=== PATIENT | female | born 1975 | race Two or more races ===

== ENCOUNTER 2021-04-26 10:15 | Inpatient (IN) | payer OTHER ==
[2021-04-26] VITALS (18 sets, daily range): BP systolic 137–181; BP diastolic 61–105
[~2021-04-26] VITALS: Ht 167.6 cm; Wt 69.0 kg
--- NOTE | 2021-04-26 10:10 | NUR ---
Pt arrived via [facility] from [facility] to [facility] for cardiac cath with Dr Pratt. Pt is A and O x 4, ambulatory to BR with steady gait. IV site to R hand and L AC. Pt has heparin gtt, nitroglycerin gtt and NS running. Consent for procedure obtained after explaining procedure and answering all questions. O2 2L/nc in place. Pt denies chest pain at this time. 1020 Heparin gtt turned off. 1035 pt taken to Regulator Inspector by Pat HOOK and Joaquina RN. FREDO POE
[2021-04-26] MEDS ORDERED: LIDOCAINE 1% PF 2 ML VIAL. ONE (10:26)
[2021-04-26] MEDS ORDERED: IODIXANOL 320 MG/ML 100 ML VIAL. ONE (10:26)
[2021-04-26] MEDS ORDERED: HEPARIN for ARTERIAL LINE 1,500 ML ONE (10:26)
[2021-04-26] MEDS ORDERED: LISI10TA16 PO (10:31)
[2021-04-26] MEDS ORDERED: ASPI-630 PO (10:31)
[2021-04-26] MEDS ORDERED: INSU100I30 SQ (10:31)
[2021-04-26] MEDS ORDERED: MIDAZOLAM HCL/PF 2 MG/2 ML VIAL. ONE (10:41)
[2021-04-26] MEDS ORDERED: fentaNYL PF VIAL 100 MCG/2 ML VIAL ONE (10:41)
[2021-04-26] MEDS ORDERED: HEPARIN for IV BOLUS 10,000 UNIT/10 ML VIAL. ONE (10:42)
[2021-04-26] MEDS ORDERED: NITROGLYCERIN 200 MCG/2 ML SYRINGE FOR CATH/VASC LAB. ONE ×2 (10:42→11:07)
[2021-04-26] MEDS ORDERED: VERAPAMIL 5 MG/2 ML VIAL. ONE (10:42)
[2021-04-26] MEDS ORDERED: LIDOCAINE 1% PF 2 ML VIAL. INJ ONE (11:00)
[2021-04-26] MEDS ORDERED: fentaNYL PF VIAL 100 MCG/2 ML VIAL IV ONE (11:00)
[2021-04-26] MEDS ORDERED: VERAPAMIL 5 MG/2 ML VIAL. IART ONE (11:00)
[2021-04-26] MEDS ORDERED: IODIXANOL 320 MG/ML 100 ML VIAL. IART ONE (11:00)
[2021-04-26] MEDS ORDERED: MIDAZOLAM HCL/PF 2 MG/2 ML VIAL. IV ONE (11:00)
[2021-04-26] MEDS ORDERED: NITROGLYCERIN 200 MCG/2 ML SYRINGE FOR CATH/VASC LAB. IART ONE (11:00)
[2021-04-26] MEDS ORDERED: HEPARIN for IV BOLUS 10,000 UNIT/10 ML VIAL. IART ONE (11:00)
[2021-04-26] MEDS ORDERED: CONTRAST GIVEN. MC PRN (11:15)
--- NOTE | 2021-04-26 11:49 | CARD ---
MR#: [id number] Date of Study: 04/26/2021 Ordering Physician: VALE GONZALEZ, Referring Physician: VALE GONZALEZ, Tech: RT Umu(R) APPROVED REPORT Technologist: RT Umu(R) Nurse: Joaquina Quiroz RN Procedure(s) performed: FLUORO TIME: 3.2 MIN DOSE: 55 Gycm2 Contrast: 69ccs Visipaque Mod Sed: 30 minutes LHC, Coronary angiography, Left ventriculogram [facility] Clinical Frailty Scale [facility] Clinical Frailty Scale: Moderately Frail Heart Failure Heart Failure: Yes If Yes, Newly Diagnosed: Yes If Yes, HF Type: Diastolic Systolic If Yes, NYHA Class: Class III CASE TECHNIQUE IV conscious sedation was used throughout procedure with appropriate monitoring and was performed in the presence of a registered nurse who was an independent trained observer other than the physician p erforming the procedure. During this case, Fluoroscopy and low osmolar contrast were used for imaging . Specimen(s) Removed: N/A Estimated Blood loss: 15 cc's. PROCEDURE NARRATIVE Clinical information: 45-year-old woman presented with accelerating angina and elevated troponin of 18. She was taken to [facility] catheterization laboratory for further evaluation Procedure details: After appropriate informed consent the right wrist was prepped and draped in usual sterile fashion. Under 1% lidocaine local anesthesia a 6 [place] sheath was placed in the right radial artery via the S eldinger technique. Next diagnostic angiography was performed with a 6 [place] TIG catheter and a 6 F rench pigtail catheter. At case completion catheters were removed and hemostasis was achieved with a Terumo radial band inflated to 10 mL. No acute complications are noted. Findings: Aorta 180/90 LVEDP 19 mmHg Left ventriculogram: EF 40%, distal one third of the LV is akinetic. No evidence of mitral or aortic insufficiency Coronary angiography: Left main is a moderate caliber vessel with mild luminal irregularities LAD is a calcified severely negatively remodeled vessel of small caliber with a long proximal to mid 70% stenosis D1 is a small caliber vessel with a proximal 70% stenosis Left circumflex is a moderate caliber nondominant vessel with a proximal 50% stenosis OM1 is a small to moderate caliber vessel with mild luminal irregularities RCA is a moderate to large caliber vessel with mild luminal irregularities of up to 30% RPDA is a small caliber vessel with a mid 70% stenosis Conclusion 1. Acute on chronic systolic and diastolic heart failure 2. Moderate LV systolic dysfunction, EF 40% 3. Severe one-vessel disease involving the LAD not amenable to PCI Recommendations Aggressive Medical Therapy Signed by : Vale Gonzalez, Electronically Approved : 04/26/2021 11:49:17
[2021-04-26] MEDS ORDERED: 0.9 % SODIUM CHLORIDE 10 ML DISP.SYRIN. IV PRN (13:15)
[2021-04-26] MEDS ORDERED: NITROGLYCERIN SUBLINGUAL 0.4 MG BOTTLE OF 25. SL PRN (13:15)
--- NOTE | 2021-04-26 13:26 | NUR ---
Report called to Hayden POE on [address] [place] [address], patient ate lunch, all of air is out of TR band and dressing will need to be applied. Vital signs stable, no problems noted. Addendum: 04/26/21 at 1331 by DAVID UGALDE RN Shipping Receiving Clerk mathematics technician decided it would be best to dress radial site. Dressing=Clean,dry,intact and no bleeding present. Patient transported to [address] [place] [address] with 2 RNs.
--- NOTE | 2021-04-26 13:37 | CONS ---
DATE OF CONSULTATION: 04/26/2021 REASON FOR CONSULTATION: Non-ST elevation ND. HISTORY OF PRESENT ILLNESS: A 45-year-old woman who presents to the hospital in the setting of an elevated troponin. She was seen in the office approximately 1 week ago and was planned for stress testing in light of the fact that she had chronic kidney disease prior to proceeding with cardiac catheterization. Prior to getting her stress test completed, she had worsening chest pain and ended up in the hospital. She was emergently taken to the cardiac catheterization laboratory due to a peak troponin of 18. PAST MEDICAL HISTORY: 1. Hypertension. 2. Dyslipidemia. 3. Type 2 diabetes. 4. Angina. SOCIAL HISTORY: The patient has a boyfriend. She also has a daughter. She denies any alcohol, tobacco or illicit drug use. ALLERGIES: HYDROCODONE. REVIEW OF SYSTEMS: Negative for 10 out of 14 systems reviewed, unless otherwise mentioned above in HPI. PHYSICAL EXAMINATION: VITAL SIGNS: Heart rate 100, blood pressure 180/90, respiratory rate 14, pulse ox 98% on room air, temperature afebrile. GENERAL: She is alert and oriented, in no acute distress. HEAD AND NECK: Unremarkable. CARDIAC: Regular rate and rhythm without murmurs, rubs or gallops. LUNGS: Clear to auscultation bilaterally. ABDOMEN: Soft, nontender, nondistended. EXTREMITIES: No clubbing, cyanosis or edema. NEUROLOGIC: No focal deficits. MUSCULOSKELETAL: No trauma. DIAGNOSTIC STUDIES: EKG demonstrates lateral ST segment depression and subtle inferolateral ST elevation. Troponin peak of 18. Cardiac catheterization demonstrated severe LAD disease, not amenable to PCI due to the severe negative remodeling. IMPRESSION: 1. Non-ST elevation myocardial infarction in the setting of severe left anterior descending coronary artery disease. 2. Hypertension. 3. Dyslipidemia. 4. Type 2 diabetes. RECOMMENDATIONS: 1. At this present time, continue aspirin and heparin drips. 2. I have discussed the case briefly with cardiac surgery and her vessels are not amenable for bypass targets. I reviewed the case with outside hospital supervisor steffen house as well who concur that her vessels are not amenable to PCI. 3. After official review of films by cardiac surgery (Dr Zhu) will start Plavix. 4. Continue aggressive medical therapy. Supportive care with statins. LEANNA/TOYIN DR: LEANNA/makenna TID: [id number] MTDD
[2021-04-26] MEDS: METOPROLOL TART IMMED RELEASE 25 MG TABLET. PO SCH ×2 (15:34→22:00)
--- NOTE | 2021-04-26 16:24 | CARD ---
MR#: [id number] Date of Study: 04/26/2021 Ordering Physician: VALE GONZALEZ, Referring Physician: VALE GONZALEZ, Tech: Luan Balderas [facility] APPROVED REPORT EXAM: Two-dimensional and M-mode echocardiogram with Doppler and color Doppler. Other Information Quality : AverageHR: 89bpm Rhythm : NSR INDICATION Cardiac Disease: CAD STEMI RISK FACTORS Hypertension Hyperlipidemia Family History Diabetes 2D DIMENSIONS Left Atrium(2D)3.5 (1.6-4.0cm)IVSd1.7 (0.7-1.1cm) Aortic Root(2D)2.9 (2.0-3.7cm)LVDd3.8 (3.9-5.9cm) LVOT Diameter1.9 (1.8-2.4cm)PWd1.7 (0.7-1.1cm) LVDs2.8 (2.5-4.0cm)FS (%) 26.5 % SV32.9 ml Aortic Valve AoV Peak Torres.128.7cm/sAoV VTI27.0cm AO Peak GR.6.6mmHgLVOT VTI 14.62cm AO Mean GR.4mmHgAI P 1/2 [id number] Mitral Valve MV E Asmqaewm98.0cm/sMV E Peak Gr.5mmHg MV DECEL [id number] A Wwzbmwxo39.3cm/s MV E Mean Gr.3mmHgE/A Ratio1.1 TDI Lateral E' P. V6.76cm/sMedial E' P. V5.34cm/s E/Lateral E'14.1E/Medial E'17.8 Tricuspid Valve TR P. Hwnbaqev000cy/sTR Peak Gr.39mmHg Pulmonary Vein S1 Vlggezkh22.5cm/sS2 Worxedfw82.89cm/s D2 Wszxqhrx76.9cm/s LEFT VENTRICLE The left ventricle is normal size. There is mild to moderate concentric left ventricular hypertrophy. The ejection fraction is mildly to moderately decreased with an ejection fraction of 40%. The dista l septum and apex are severely hypokinetic. Transmitral Doppler flow pattern is Grade II-pseudonormal filling dynamics. No left ventricle thrombus noted on this study. There is no ventricular septal def ect visualized. There is no left ventricular aneurysm. There is no mass noted in the left ventricle. RIGHT VENTRICLE The right ventricle is normal size. There is normal right ventricular wall thickness. The right ventr icular systolic function is normal. ATRIA The left atrium is moderately dilated. The right atrium size is normal. The interatrial septum is int act with no evidence for an atrial septal defect or patent foramen ovale as noted on 2-D or Doppler i maging. AORTIC VALVE The aortic valve is normal in structure and function. Doppler and Color Flow revealed trace to mild a ortic regurgitation. There is no significant aortic valvular stenosis. There is no aortic valvular ve getation. MITRAL VALVE Mitral annular calcification is mild. There is no evidence of mitral valve prolapse. There is no mitr al valve stenosis. Doppler and Color-flow revealed mild to moderate mitral regurgitation. TRICUSPID VALVE The tricuspid valve is normal in structure and function. Doppler and Color Flow revealed trace tricus pid regurgitation. PULMONIC VALVE The pulmonary valve is normal in structure and function. Doppler and Color Flow revealed no pulmonic valvular regurgitation. There is no pulmonic valvular stenosis. GREAT VESSELS The aortic root is normal in size. The ascending aorta is normal in size. The pulmonary artery is nor mal. The IVC is normal in size and collapses >50% with inspiration. PERICARDIAL EFFUSION Small pleural effusion noted. There is no evidence of significant pericardial effusion. Critical Notification Critical Value: No <Conclusion> The left ventricle is normal size. The ejection fraction is mildly to moderately decreased with an ejection fraction of 40%. The distal septum and apex are severely hypokinetic. There is mild to moderate concentric left ventricular hypertrophy. Doppler and Color Flow revealed trace to mild aortic regurgitation. There is no significant aortic valvular stenosis. Doppler and Color-flow revealed mild to moderate mitral regurgitation. Doppler and Color Flow revealed trace tricuspid regurgitation. Signed by : Chris Rodriguez MD Electronically Approved : 04/26/2021 16:23:58
[2021-04-26] MEDS ORDERED: HEPARIN for IV BOLUS 10,000 UNIT/10 ML VIAL. IV PRN (16:30)
[2021-04-26] MEDS ORDERED: HEPARIN 25,000UTS/250ML PREMIX 250 ML IV PRN (16:30)
[2021-04-26] MEDS ORDERED: NITROGLYCERIN PREMIX 250 ML IV PRN (16:45)
[2021-04-26] MEDS: LABETALOL 20 MG/4 ML DISP.SYRIN. IVP PRN (19:57)
[2021-04-26] MEDS: INSULIN GLARGINE SYRINGE. SQ SCH (21:00)
[2021-04-26] MEDS ORDERED: ATORVASTATIN CALCIUM 40 MG TABLET. PO SCH (21:00)
[2021-04-26] MEDS: ATORVASTATIN CALCIUM 40 MG TABLET. PO SCH (22:00)
[2021-04-26] MEDS: ACETAMINOPHEN 500 MG TABLET PO PRN (22:01)
[2021-04-27] VITALS (10 sets, daily range): BP systolic 108–187; BP diastolic 59–99
--- NOTE | 2021-04-27 06:13 | EKG ---
[facility] [address] [place] [address] Test Date: 2021-04-27 Test Time: 06:08:03 Pat Name: ZANDRA LARA Department: Room: [facility] Gender: F Detective Sergeant: JOSETTE : 1975 Requested By: VALE GONZALEZ Order Number: [id number] Reading MD: Measurements Intervals [place] Rate: 89 P: 28 MA: 146 QRS: 44 QRSD: 76 T: 139 QT: 412 QTc: 502 Interpretive Statements SINUS RHYTHM ST & T ABNORMALITY, CONSIDER HIGH LATERAL ISCHEMIA OR LEFT VENTRICULAR STRAIN T ABNORMALITY IN ANTERIOR LEADS ABNORMAL ECG RI6.02 No previous ECG available for comparison
[2021-04-27 06:32] LABS: CALCIUM 8.1 mg/dL (8.5-10.1); CREATININE 1.8 mg/dL (0.6-1.0); GFR 30.3; POTASSIUM 4.3 mmol/L (3.5-5.1)
[2021-04-27 06:36] LABS: HEMATOCRIT 26.8 % (36.0-47.0); RED BLOOD COUNT 3.13 x10^6/uL (3.50-5.40); RED CELL DISTRIBUTION WIDTH 17.1 % (11.5-14.5); WHITE BLOOD COUNT 9.2 x10^3/uL (4.0-11.0)
[2021-04-27] MEDS: CLOPIDOGREL BISULFATE 75 MG TABLET PO SCH (08:40)
[2021-04-27] MEDS: METOPROLOL TART IMMED RELEASE 25 MG TABLET. PO SCH ×2 (08:41→19:57)
[2021-04-27] MEDS: ASPIRIN ENTERIC COATED 81 MG TABLET.DR. PO SCH (08:41)
[2021-04-27] MEDS: LISINOPRIL 10 MG TABLET PO SCH (08:41)
[2021-04-27] MEDS: INSULIN GLARGINE SYRINGE. SQ SCH ×2 (08:44→19:56)
[2021-04-27] MEDS ORDERED: ASPIRIN CHEWABLE 81 MG TABLET. PO SCH (09:00)
[2021-04-27] MEDS ORDERED: ONDANSETRON PF 4 MG/2 ML VIAL. IVP PRN (10:15)
--- NOTE | 2021-04-27 11:57 | HP ---
ADMIT DATE: 04/26/2021 HISTORY OF PRESENT ILLNESS: The patient is a 45-year-old [place] female patient who presented to the Emergency Room of [facility] with chest pain that has been going on every night since October. She saw her primary care physician, ____, who referred her to Dr. Pratt and apparently as the pain has been consistent nightly central chest pain located in the middle chest, there is also some slight association with shortness of breath with some cough. She did have a diagnosis of COVID on 03/22, no vaccination for COVID. The patient does have a history of diabetes and elevated cholesterol. Denied any trauma. Denied any specific ill contact. The patient denied any immunosuppression. Denied any recent travel. The patient was extensively evaluated in the Emergency Room of [facility]. She has had an EKG done, which showed that she was in sinus tachycardia with ST changes consistent with subendocardial injury with suspected acute inferior myocardial infarction and her cardiac enzymes were also elevated and the patient was diagnosed with non-ST segment elevation myocardial infarction and was transferred to [facility] for cardiac catheterization. Her first troponin was 1.388, has risen to 10.174 and 18.804 prior to transfer to [facility]. She was also found to have mildly impaired kidney function. Her D-dimer was slightly high at 2.26. PAST MEDICAL HISTORY: Significant for hypertension, hyperlipidemia, type 2 diabetes mellitus. PAST SURGICAL HISTORY: Significant for tubal ligation and carpal tunnel release bilaterally. ALLERGIES: SHE IS ALLERGIC TO HYDROCODONE AND PERCOCET. MEDICATIONS: She is currently on the following medications: She is on lisinopril 10 mg once a day, aspirin 81 mg once a day and she is on Tresiba 24 units subcutaneously twice a day with meals. FAMILY HISTORY: She has 1 sister and 1 brother younger and healthy. Her father of myocardial infarction. Mother is still alive at age of 66 and apparently healthy. SOCIAL HISTORY: She is , has 1 daughter. She never smoked, does not drink alcohol or recreational drugs. She works at the [employer], packing medication for shipment. REVIEW OF SYSTEMS: As per history of present illness. PHYSICAL EXAMINATION: GENERAL: On arrival to the emergency room, the patient looked pale, but not jaundiced or cyanosed. No thyromegaly. No jugular venous distention. No limb edema. VITAL SIGNS: Her heart rate was 113, blood pressure was 164/88, temperature was 98.2, respiratory rate was 22, and oxygen saturation was 83% and it improved to 93% on 2 liters of oxygen. HEAD, EYES, EARS, NOSE, AND THROAT: Normocephalic, atraumatic. NECK: Supple. HEART: Normal first and second heart sounds. No gallop, rub or murmur. CHEST: Clear to auscultation. No crepitation or rhonchi. ABDOMEN: Distended, soft, nontender. NEUROLOGIC: She was grossly intact. LABORATORY DATA: Showed a white cell count 11,800, hemoglobin 10, hematocrit 32, MCV 85 and platelet count 510,000 with a manual differential showed 84% polymorphs, 11% lymphocytes and 4% monocytes. Her prothrombin time was 9.3, INR 0.9, APTT was 29 and D-dimer was 2.26. Her chemistry showed a serum sodium 139, potassium 4.9, chloride 106, bicarbonate 30, anion gap of 3, BUN 25, creatinine 1.4, estimated GFR was 40 mL per minute, her glucose 106, calcium was 8.2, magnesium was 1.8. Total bilirubin, AST, ALT, alkaline phosphatase were normal. CK was 239. Troponin was 1.388. Beta natriuretic peptide was 6,700. Total protein 5.6, albumin was 2.3. Second troponin was 10.174 and third was 18.804. Her serum triglycerides was 168, total cholesterol 253, LDL cholesterol 179, VLDL was 33, HDL was 41 and the ratio was 6. Her serum lipase 162 and TSH was 1.922. Urinalysis essentially unremarkable. Toxic screen was negative and her coronavirus by rapid testing was negative. Her chest x-ray showed hazy airspace opacities at the lower half of both lungs on a background of increased lung marking. No large effusion or pneumothorax, unchanged cardiomediastinal silhouette and ariel. ASSESSMENT AND PLAN: The patient was transferred to [facility] with a non-ST segment elevation myocardial infarction, acute hypoxic respiratory failure, hypertension, hyperlipidemia, congestive heart failure, anemia and impaired kidney function. We did consult the Cardiology team for further evaluation and treatment. RIRI/TRISTON[facility] [place] DR: Lucille TID: [id number]
[2021-04-27] MEDS ORDERED: LISINOPRIL 10 MG TABLET PO ONE (14:30)
--- NOTE | 2021-04-27 15:20 | PDOC ---
PROGRESS NOTES Date of Service DATE: 04/27/21 TIME: 15:18 Subjective Subjective Patient seen and examined Objective Objective Vital Signs Date Time Temp Pulse Resp B/P (MAP) Pulse Ox O2 Delivery O2 Flow Rate FiO2 04/27/21 14:41 85 172/82 04/27/21 11:00 98.8 18 96 Room Air 98.8 04/26/21 23:27 1.0 Intake and Output 04/27/21 07:00 Intake Total 1200 ml Balance 1200 ml Intake Oral 1200 ml # Voids 2 Physical Exam Abdomen: Normal bowel sounds Heart: Regular rate General: mild distress HEENT: Atraumatic Lungs: Clear to auscultation Assessment Assessment 1. Coronary artery disease with non-ST elevated myocardial infarction. Catheterization yesterday as noted above. The patient has a small diffusely diseased LAD that is not amenable to either percutaneous intervention or bypass surgery. Ejection fraction is mildly decreased at 40%. We will continue present medications and adjust as needed. 2. Hypertension. We will increase lisinopril. We will continue to monitor. 3. Elevated creatinine 1.8. Will monitor post catheterization. 4. Hyperlipidemia. Continue statin medication. Comment Review of Relevant I have reviewed the following items isidro (where applicable) has been applied. Labs Laboratory Tests Test 04/26/21 11:13 04/26/21 19:38 04/27/21 05:15 04/27/21 07:42 Activated Clotting Time 219 sec (92-181) Heparin Anti-Xa Act, Unfractionated 0.55 IU/mL (0.30-0.70) 0.27 IU/mL (0.30-0.70) White Blood Count 9.2 x10^3/uL (4.0-11.0) Red Blood Count 3.13 x10^6/uL (3.50-5.40) Hemoglobin 9.0 g/dL (12.0-15.5) Hematocrit 26.8 % (36.0-47.0) Mean Corpuscular Volume 86 fL (79-100) Mean Corpuscular Hemoglobin 29 pg (25-35) Mean Corpuscular Hemoglobin Concent 33 g/dL (31-37) Red Cell Distribution Width 17.1 % (11.5-14.5) Platelet Count 433 x10^3/uL (140-400) Sodium Level 139 mmol/L (136-145) Potassium Level 4.3 mmol/L (3.5-5.1) Chloride Level 106 mmol/L (98-107) Carbon Dioxide Level 27 mmol/L (21-32) Anion Gap 6 (6-14) Blood Urea Nitrogen 27 mg/dL (7-20) Creatinine 1.8 mg/dL (0.6-1.0) Estimated GFR (Cockcroft-Gault) 30.3 Glucose Level 103 mg/dL (70-99) Calcium Level 8.1 mg/dL (8.5-10.1) Glucose (Fingerstick) 106 mg/dL (70-99) Test 04/27/21 10:55 Glucose (Fingerstick) 91 mg/dL (70-99) Laboratory Tests Test 04/26/21 19:38 04/27/21 05:15 04/27/21 07:42 04/27/21 10:55 Heparin Anti-Xa Act, Unfractionated 0.55 IU/mL (0.30-0.70) 0.27 IU/mL (0.30-0.70) White Blood Count 9.2 x10^3/uL (4.0-11.0) Red Blood Count 3.13 x10^6/uL (3.50-5.40) Hemoglobin 9.0 g/dL (12.0-15.5) Hematocrit 26.8 % (36.0-47.0) Mean Corpuscular Volume 86 fL (79-100) Mean Corpuscular Hemoglobin 29 pg (25-35) Mean Corpuscular Hemoglobin Concent 33 g/dL (31-37) Red Cell Distribution Width 17.1 % (11.5-14.5) Platelet Count 433 x10^3/uL (140-400) Sodium Level 139 mmol/L (136-145) Potassium Level 4.3 mmol/L (3.5-5.1) Chloride Level 106 mmol/L (98-107) Carbon Dioxide Level 27 mmol/L (21-32) Anion Gap 6 (6-14) Blood Urea Nitrogen 27 mg/dL (7-20) Creatinine 1.8 mg/dL (0.6-1.0) Estimated GFR (Cockcroft-Gault) 30.3 Glucose Level 103 mg/dL (70-99) Calcium Level 8.1 mg/dL (8.5-10.1) Glucose (Fingerstick) 106 mg/dL (70-99) 91 mg/dL (70-99) Medications Current Medications Iodixanol (Visipaque 320) 100 ml STK-MED ONCE .ROUTE ; Start 04/26/21 at 10:26; Stop 04/26/21 at 10:26; Status DC Lidocaine HCl (Xylocaine-Mpf 1% 2ml Vial) 2 ml STK-MED ONCE .ROUTE ; Start 04/26/21 at 10:26; Stop 04/26/21 at 10:26; Status DC Heparin Sodium/ Sodium Chloride 1,500 ml @ As Directed STK-MED ONCE .ROUTE ; Start 04/26/21 at 10:26; Stop 04/26/21 at 10:26; Status DC Fentanyl Citrate (Fentanyl 2ml Vial) 100 mcg STK-MED ONCE .ROUTE ; Start 04/26/21 at 10:41; Stop 04/26/21 at 10:42; Status DC Midazolam HCl (Versed) 2 mg STK-MED ONCE .ROUTE ; Start 04/26/21 at 10:41; Stop 04/26/21 at 10:42; Status DC Heparin Sodium (Porcine) (Heparin Sodium) 10,000 unit STK-MED ONCE .ROUTE ; Start 04/26/21 at 10:42; Stop 04/26/21 at 10:42; Status DC Verapamil HCl (Verapamil) 5 mg STK-MED ONCE .ROUTE ; Start 04/26/21 at 10:42; Stop 04/26/21 at 10:42; Status DC Nitroglycerin (Nitroglycerin) 200 mcg STK-MED ONCE .ROUTE ; Start 04/26/21 at 10:42; Stop 04/26/21 at 10:42; Status DC Nitroglycerin (Nitroglycerin) 200 mcg 1X ONCE IART Last administered on 04/26/21at 10:58; Start 04/26/21 at 11:00; Stop 04/26/21 at 11:07; Status DC Verapamil HCl (Verapamil) 2.5 mg 1X ONCE IART Last administered on 04/26/21at 10:58; Start 04/26/21 at 11:00; Stop 04/26/21 at 11:07; Status DC Heparin Sodium (Porcine) (Heparin Sodium) 2,500 unit 1X ONCE IART Last administered on 04/26/21at 10:57; Start 04/26/21 at 11:00; Stop 04/26/21 at 11:07; Status DC Heparin Sodium/ Sodium Chloride (HEPARIN for ARTERIAL LINE FLUSH) 1,000 unit 1X ONCE IART Last administered on 04/26/21at 11:00; Start 04/26/21 at 11:00; Stop 04/26/21 at 11:07; Status DC Heparin Sodium/ Sodium Chloride (HEPARIN for ARTERIAL LINE FLUSH) 1,000 unit 1X ONCE IART Last administered on 04/26/21at 11:00; Start 04/26/21 at 11:00; Stop 04/26/21 at 11:07; Status DC Midazolam HCl (Versed) 2 mg 1X ONCE IV Last administered on 04/26/21at 10:57; Start 04/26/21 at 11:00; Stop 04/26/21 at 11:07; Status DC Fentanyl Citrate (Fentanyl 2ml Vial) 100 mcg 1X ONCE IV Last administered on 04/26/21at 10:57; Start 04/26/21 at 11:00; Stop 04/26/21 at 11:07; Status DC Iodixanol (Visipaque 320) 100 ml 1X ONCE IART Last administered on 04/26/21at 11:19; Start 04/26/21 at 11:00; Stop 04/26/21 at 11:07; Status DC Lidocaine HCl (Xylocaine-Mpf 1% 2ml Vial) 2 ml 1X ONCE INJ Last administered on 04/26/21at 10:57; Start 04/26/21 at 11:00; Stop 04/26/21 at 11:07; Status DC Info (CONTRAST GIVEN -- Rx MONITORING) 1 each PRN DAILY PRN MC SEE COMMENTS; Start 04/26/21 at 11:15; Stop 04/28/21 at 11:14 Nitroglycerin (Nitroglycerin) 200 mcg STK-MED ONCE .ROUTE ; Start 04/26/21 at 11:07; Stop 04/26/21 at 11:07; Status DC Sodium Chloride (Normal Saline Flush) 3 ml QSHIFT PRN IV AFTER MEDS AND BLOOD DRAWS; Start 04/26/21 at 13:15 Aspirin (Ecotrin) 81 mg DAILYWBKFT PO Last administered on 04/27/21at 08:41; Start 04/27/21 at 08:00 Clopidogrel Bisulfate (Plavix) 75 mg DAILYWBKFT PO Last administered on 04/27/21at 08:40; Start 04/27/21 at 08:00 Metoprolol Tartrate (Lopressor) 25 mg BID PO Last administered on 04/27/21at 08:41; Start 04/26/21 at 14:00 Atorvastatin Calcium (Lipitor) 40 mg QHS PO Last administered on 04/26/21at 22:00; Start 04/26/21 at 21:00 Nitroglycerin (Nitrostat) 0.4 mg PRN Q5MIN PRN SL CHEST PAIN; Start 04/26/21 at 13:15 Heparin Sodium/ Dextrose 250 ml @ 0 mls/hr CONT PRN IV PER PROTOCOL; Start 04/26/21 at 16:30 Heparin Sodium (Porcine) (Heparin Sodium) 1,650 unit PRN Q6HRS PRN IV FOR UFH LEVEL LESS THAN 0.2; Start 04/26/21 at 16:30 Labetalol HCl (Normodyne Iv Push) 20 mg Q6HRS PRN IVP HYPERTENSION Last administered on 04/26/21at 19:57; Start 04/26/21 at 16:30 Nitroglycerin/ Dextrose 250 ml @ 1.5 mls/hr CONT PRN IV SEE I/O RECORD Last administered on 04/27/21at 08:40; Start 04/26/21 at 16:45; Stop 04/27/21 at 14:29; Status DC Atorvastatin Calcium (Lipitor) 40 mg QHS PO ; Start 04/26/21 at 21:00; Status UNV Aspirin (Aspirin Chewable) 81 mg DAILY PO ; Start 04/27/21 at 09:00; Status UNV Lisinopril (Prinivil) 10 mg DAILY PO Last administered on 04/27/21at 08:41; Start 04/27/21 at 09:00 Insulin Glargine (Lantus Syringe) 24 unit BID SQ ; Start 04/26/21 at 21:00 Acetaminophen (Tylenol) 1,000 mg PRN Q6HRS PRN PO FEVER/mild pain Last administered on 04/26/21at 22:01; Start 04/26/21 at 21:45 Ondansetron HCl (Zofran) 4 mg PRN Q6HRS PRN IVP NAUSEA/VOMITING Last administered on 04/27/21at 10:30; Start 04/27/21 at 10:15 Lisinopril (Prinivil) 20 mg 1X ONCE PO Last administered on 04/27/21at 14:41; Start 04/27/21 at 14:30; Stop 04/27/21 at 14:31; Status DC Active Scripts Active Reported Aspirin 81 Mg Tab.chew 81 Mg PO DAILY Lisinopril 10 Mg Tablet 10 Mg PO DAILY Tresiba Flextouch U-100 (Insulin Degludec) 100 Unit/1 Ml Insuln.pen 24 Unit SQ BIDWMEALS Vitals/I & O Vital Sign - Last 24 Hours 04/26/21 04/26/21 04/26/21 04/26/21 15:34 15:45 16:00 16:15 Pulse 97 92 92 96 B/P (MAP) 169/82 (111) Pulse Ox 89 98 97 O2 Delivery Room Air Room Air Room Air 04/26/21 04/26/21 04/26/21 04/26/21 16:30 17:00 19:30 19:57 Temp 98.3 98.3 Pulse 100 92 86 92 Resp 18 B/P (MAP) 176/86 (116) 181/85 (117) 170/81 (110) 181/85 Pulse Ox 95 96 95 O2 Delivery Room Air Room Air Nasal Cannula O2 Flow Rate 1.0 04/26/21 04/26/21 04/26/21 04/26/21 20:00 22:00 22:00 23:00 Pulse 92 82 82 B/P (MAP) 181/85 165/83 (110) 158/75 (102) O2 Delivery Room Air 04/26/21 04/27/21 04/27/21 04/27/21 23:27 00:18 01:00 01:44 Temp 98.2 98.2 Pulse 77 72 75 Resp 21 B/P (MAP) 119/60 (79) 108/59 (75) 108/61 (77) Pulse Ox 97 O2 Delivery Nasal Cannula O2 Flow Rate 1.0 04/27/21 04/27/21 04/27/21 04/27/21 03:00 04:00 04:23 07:18 Temp 98.0 98.7 98.0 98.7 Pulse 78 91 Resp 20 B/P (MAP) 123/65 (84) 135/62 (86) 143/99 (114) Pulse Ox 94 99 O2 Delivery Room Air Room Air 04/27/21 04/27/21 04/27/21 04/27/21 07:45 08:41 08:41 11:00 Temp 98.8 98.8 Pulse 91 91 85 Resp 18 B/P (MAP) 143/99 143/99 172/82 (112) Pulse Ox 96 O2 Delivery Room Air Room Air 04/27/21 14:41 Pulse 85 B/P (MAP) 172/82 Intake and Output 04/26/21 04/26/21 04/27/21 15:00 23:00 07:00 Intake Total 1200 ml Balance 1200 ml Justifications for Admission Other Justification HARPER OROURKE MD Apr 27, 2021 15:20
--- NOTE | 2021-04-27 19:31 | PN ---
DATE: 04/27/2021 SUBJECTIVE: The patient was transferred from [facility] with chest pain and was diagnosed with non-ST segment elevation myocardial infarction and underwent cardiac catheterization, which showed that the patient has acute on chronic systolic and diastolic congestive heart failure, moderate left ventricular systolic function, ejection fraction of 40%, severe 1 vessel disease involving the LAD, not amenable to PCI and proof plate maker recommended aggressive medical treatment. The patient was started on heparin drip and nitroglycerin drip. She has had an echocardiogram done, which basically showed that her left ventricular size is normal. Left ventricular ejection fraction is mildly to moderately decreased with an ejection fraction of 40%. The distal septal and apex are severely hypokinetic. There is [id number] concentric left ventricular hypertrophy. The Doppler and color flow revealed trace to mild aortic regurgitation, no significant aortic valvular stenosis, [id number] mitral regurgitation and trace tricuspid regurgitation. When I saw her this morning, the patient was resting slightly propped up in bed, in no apparent respiratory distress. She is awake, alert, complaining of nausea, but denied any chest pain or shortness of breath. PHYSICAL EXAMINATION: GENERAL: When I examined her, she was pale with no jaundice, cyanosis, no lymphadenopathy, no thyromegaly, no jugular venous distention. No lower limb edema. VITAL SIGNS: Her heart rate was 91, blood pressure is 143/99, temperature was 98.7, respiratory rate was 20 and oxygen saturation was 99%. HEAD, EYES, EARS, NOSE, AND THROAT: Normocephalic, atraumatic. NECK: Supple. HEART: Normal first and second heart sounds, no gallop or murmur. CHEST: Clear to auscultation. No crepitation or rhonchi. ABDOMEN: Distended, soft, nontender. NEUROLOGIC: She was grossly intact. Her intake over the last 24 hours was 1200, no output was recorded. LABORATORY DATA: Her lab work this morning showed a serum sodium 139, potassium 4.3, chloride 106, bicarbonate 27, anion gap of 6, BUN 27, creatinine 1.8. Estimated GFR was 30 mL per minute. Her glucose 103, calcium was 8.1. Her white cell count was 9200, hemoglobin 9, hematocrit 27, MCV 86 and platelet count of 133,000. ASSESSMENT: In summary, this is a 45-year-old [place] female patient who was admitted with a non-ST segment elevation myocardial infarction. She has multiple risk factors for coronary artery disease including hypertension, hyperlipidemia and also type 2 diabetes mellitus. Her angiogram showed the patient has severe 1 vessel disease involving the left anterior descending, not amenable to PCI. She has acute on chronic diastolic and systolic congestive heart failure, moderate left ventricular systolic dysfunction, ejection fraction of 40%. She has hypertension, hyperlipidemia, and type 2 diabetes mellitus. PLAN: To continue with all her current medications that include obviously, lisinopril, Plavix and aspirin. She is on Lantus insulin 24 units twice a day, atorvastatin 40 mg at bedtime. She is on nitroglycerin drip as well as heparin drip, metoprolol 25 mg twice a day. According to ____, she will continue this until tomorrow, Thursday and she will be able to be discharged home. RIRI/CAL/EVITA DR: Lucille TID: [id number]
[2021-04-27] MEDS: ATORVASTATIN CALCIUM 40 MG TABLET. PO SCH (19:57)
[2021-04-28 03:30] VITALS: BP 158/67
[2021-04-28 07:45] VITALS: BP 165/78
[2021-04-28 08:13] LABS: BASO # 0.1 x10^3/uL (0.0-0.2); BASO % 1 % (0-3); EOS # 0.4 x10^3/uL (0.0-0.7); EOS % 6 % (0-3); HEMOGLOBIN 9.3 g/dL (12.0-15.5); LYMPH # 1.6 x10^3/uL (1.0-4.8); LYMPH % 23 % (24-48); MEAN CORPUSCULAR HEMOGLOBIN 28 pg (25-35); MEAN CORPUSCULAR HGB CONC 33 g/dL (31-37); MEAN CORPUSCULAR VOLUME 85 fL (79-100); MONO # 0.4 x10^3/uL (0.0-1.1); MONO % 7 % (0-9); NEUT # 4.3 x10^3/uL (1.8-7.7); NEUT % 63 % (31-73); PLATELET COUNT 453 x10^3/uL (140-400); RED BLOOD COUNT 3.29 x10^6/uL (3.50-5.40); RED CELL DISTRIBUTION WIDTH 16.8 % (11.5-14.5); WHITE BLOOD COUNT 6.8 x10^3/uL (4.0-11.0)
[2021-04-28 08:18] LABS: CALCIUM 8.5 mg/dL (8.5-10.1); CREATININE 1.8 mg/dL (0.6-1.0); GFR 30.3; POTASSIUM 4.7 mmol/L (3.5-5.1)
[2021-04-28] MEDS: INSULIN GLARGINE SYRINGE. SQ SCH ×2 (09:00→20:07)
--- NOTE | 2021-04-28 09:31 | PN ---
DATE: 04/28/2021 SUBJECTIVE: The patient is sitting in her chair, in no apparent respiratory distress. On questioning her, she denied any chest pain, denied any shortness of breath and stated that she has an uneventful night. PHYSICAL EXAMINATION: GENERAL: When I examined her, she looked well and was clearly in no apparent respiratory distress. She was somewhat pale. No jaundice, cyanosis or thyromegaly. No jugular venous distention. No lower limb edema. VITAL SIGNS: Her heart rate was 70, blood pressure was 165/78, temperature was 98, respiratory rate 20, and oxygen saturation was 94% on room air. HEAD, EYES, EARS, NOSE, AND THROAT: Showed normocephalic, atraumatic. NECK: Supple. HEART: Normal first and second heart sounds. No gallop, rub or murmur. CHEST: Clear to auscultation. No crepitation or rhonchi. ABDOMEN: Distended, soft, nontender. NEUROLOGIC: She was grossly intact. Her intake was 1200, no output was recorded. LABORATORY WORK: This morning showed a serum sodium of 140, potassium 4.7, chloride 107, bicarbonate 27, anion gap of 6, BUN 28, creatinine 1.8. Estimated GFR was 30 mL per minute. Her glucose was low at 44 and calcium was 8.5. Her white cell count was 9200, hemoglobin 9, hematocrit 27, MCV 86 and platelet count of 433,000. ASSESSMENT: 1. This is a 45-year-old [place] female patient who was admitted with non-ST segment elevation myocardial infarction. She has multiple risk factors for coronary artery disease including hypertension, hyperlipidemia, type 2 diabetes mellitus. Her angiogram showed she has severe 1 vessel disease involving the left anterior descending, not amenable to percutaneous coronary intervention or bypass surgery. 2. Acute on chronic diastolic congestive heart failure. 3. Moderate left ventricular systolic dysfunction with ejection fraction of 40%. 4. Hypertension. 5. Hyperlipidemia. 6. Type 2 diabetes mellitus. 7. Acute kidney injury, likely due to contrast-induced nephropathy. Her creatinine has risen from 1.4 and 1.8 and stabilized there. PLAN: To continue with all her current medication. Await Cardiology's evaluation to see whether she is a candidate to be discharged home and followed as an outpatient. SHARIFA DR: Lucille TID: [id number]
[2021-04-28] MEDS: METOPROLOL TART IMMED RELEASE 25 MG TABLET. PO SCH (10:10)
[2021-04-28] MEDS: LISINOPRIL 10 MG TABLET PO SCH (10:11)
[2021-04-28] MEDS: CLOPIDOGREL BISULFATE 75 MG TABLET PO SCH (10:11)
[2021-04-28] MEDS: ASPIRIN ENTERIC COATED 81 MG TABLET.DR. PO SCH (10:14)
[2021-04-28 11:00] VITALS: BP 197/90
[2021-04-28] MEDS: LABETALOL 20 MG/4 ML DISP.SYRIN. IVP PRN ×2 (11:11→23:27)
--- NOTE | 2021-04-28 13:34 | PDOC ---
PROGRESS NOTES Date of Service DATE: 04/28/21 TIME: 13:31 Subjective Subjective Patient seen and examined Objective Objective Vital Signs Date Time Temp Pulse Resp B/P (MAP) Pulse Ox O2 Delivery O2 Flow Rate FiO2 04/28/21 11:11 81 197/90 04/28/21 11:00 98.1 18 93 Room Air 98.1 04/27/21 23:15 1.0 Intake and Output 04/28/21 07:00 Intake Total 1080 ml Output Total 0 ml Balance 1080 ml Intake Oral 1080 ml Output Urine Total 0 ml # Voids 2 Physical Exam Abdomen: Normal bowel sounds Heart: Regular rate General: No acute distress Lungs: Other (Mildly decreased breath sounds) Assessment Assessment 1. Coronary artery disease with non-ST elevated myocardial infarction. Catheterization as noted above. The patient has a small diffusely diseased LAD that is not amenable to either percutaneous intervention or bypass surgery. Ejection fraction is mildly decreased at 40%. The patient looks and feels better today. She denies chest pain. She continues to have dyspnea on exertion. 2. Hypertension. Continue elevated. Will adjust medications and monitor. 3. Elevated creatinine 1.8. We will recheck morning lab. 4. Hyperlipidemia. Continue statin medication. We will adjust medications for the patient's hypertension. Would increase activities today. Discharge tomorrow. This was discussed with the patient and her family. Comment Review of Relevant I have reviewed the following items isidro (where applicable) has been applied. Labs Laboratory Tests Test 04/26/21 19:38 04/27/21 05:15 04/27/21 07:42 04/27/21 10:55 Heparin Anti-Xa Act, Unfractionated 0.55 IU/mL (0.30-0.70) 0.27 IU/mL (0.30-0.70) White Blood Count 9.2 x10^3/uL (4.0-11.0) Red Blood Count 3.13 x10^6/uL (3.50-5.40) Hemoglobin 9.0 g/dL (12.0-15.5) Hematocrit 26.8 % (36.0-47.0) Mean Corpuscular Volume 86 fL (79-100) Mean Corpuscular Hemoglobin 29 pg (25-35) Mean Corpuscular Hemoglobin Concent 33 g/dL (31-37) Red Cell Distribution Width 17.1 % (11.5-14.5) Platelet Count 433 x10^3/uL (140-400) Sodium Level 139 mmol/L (136-145) Potassium Level 4.3 mmol/L (3.5-5.1) Chloride Level 106 mmol/L (98-107) Carbon Dioxide Level 27 mmol/L (21-32) Anion Gap 6 (6-14) Blood Urea Nitrogen 27 mg/dL (7-20) Creatinine 1.8 mg/dL (0.6-1.0) Estimated GFR (Cockcroft-Gault) 30.3 Glucose Level 103 mg/dL (70-99) Calcium Level 8.1 mg/dL (8.5-10.1) Glucose (Fingerstick) 106 mg/dL (70-99) 91 mg/dL (70-99) Test 04/27/21 16:34 04/27/21 19:56 04/28/21 07:00 04/28/21 07:35 Glucose (Fingerstick) 105 mg/dL (70-99) 97 mg/dL (70-99) 49 mg/dL (70-99) White Blood Count 6.8 x10^3/uL (4.0-11.0) Red Blood Count 3.29 x10^6/uL (3.50-5.40) Hemoglobin 9.3 g/dL (12.0-15.5) Hematocrit 28.0 % (36.0-47.0) Mean Corpuscular Volume 85 fL (79-100) Mean Corpuscular Hemoglobin 28 pg (25-35) Mean Corpuscular Hemoglobin Concent 33 g/dL (31-37) Red Cell Distribution Width 16.8 % (11.5-14.5) Platelet Count 453 x10^3/uL (140-400) Neutrophils (%) (Auto) 63 % (31-73) Lymphocytes (%) (Auto) 23 % (24-48) Monocytes (%) (Auto) 7 % (0-9) Eosinophils (%) (Auto) 6 % (0-3) Basophils (%) (Auto) 1 % (0-3) Neutrophils # (Auto) 4.3 x10^3/uL (1.8-7.7) Lymphocytes # (Auto) 1.6 x10^3/uL (1.0-4.8) Monocytes # (Auto) 0.4 x10^3/uL (0.0-1.1) Eosinophils # (Auto) 0.4 x10^3/uL (0.0-0.7) Basophils # (Auto) 0.1 x10^3/uL (0.0-0.2) Sodium Level 140 mmol/L (136-145) Potassium Level 4.7 mmol/L (3.5-5.1) Chloride Level 107 mmol/L (98-107) Carbon Dioxide Level 27 mmol/L (21-32) Anion Gap 6 (6-14) Blood Urea Nitrogen 28 mg/dL (7-20) Creatinine 1.8 mg/dL (0.6-1.0) Estimated GFR (Cockcroft-Gault) 30.3 Glucose Level 44 mg/dL (70-99) Calcium Level 8.5 mg/dL (8.5-10.1) Test 04/28/21 08:04 04/28/21 12:08 Glucose (Fingerstick) 98 mg/dL (70-99) 78 mg/dL (70-99) Laboratory Tests Test 04/27/21 16:34 04/27/21 19:56 04/28/21 07:00 04/28/21 07:35 Glucose (Fingerstick) 105 mg/dL (70-99) 97 mg/dL (70-99) 49 mg/dL (70-99) White Blood Count 6.8 x10^3/uL (4.0-11.0) Red Blood Count 3.29 x10^6/uL (3.50-5.40) Hemoglobin 9.3 g/dL (12.0-15.5) Hematocrit 28.0 % (36.0-47.0) Mean Corpuscular Volume 85 fL (79-100) Mean Corpuscular Hemoglobin 28 pg (25-35) Mean Corpuscular Hemoglobin Concent 33 g/dL (31-37) Red Cell Distribution Width 16.8 % (11.5-14.5) Platelet Count 453 x10^3/uL (140-400) Neutrophils (%) (Auto) 63 % (31-73) Lymphocytes (%) (Auto) 23 % (24-48) Monocytes (%) (Auto) 7 % (0-9) Eosinophils (%) (Auto) 6 % (0-3) Basophils (%) (Auto) 1 % (0-3) Neutrophils # (Auto) 4.3 x10^3/uL (1.8-7.7) Lymphocytes # (Auto) 1.6 x10^3/uL (1.0-4.8) Monocytes # (Auto) 0.4 x10^3/uL (0.0-1.1) Eosinophils # (Auto) 0.4 x10^3/uL (0.0-0.7) Basophils # (Auto) 0.1 x10^3/uL (0.0-0.2) Sodium Level 140 mmol/L (136-145) Potassium Level 4.7 mmol/L (3.5-5.1) Chloride Level 107 mmol/L (98-107) Carbon Dioxide Level 27 mmol/L (21-32) Anion Gap 6 (6-14) Blood Urea Nitrogen 28 mg/dL (7-20) Creatinine 1.8 mg/dL (0.6-1.0) Estimated GFR (Cockcroft-Gault) 30.3 Glucose Level 44 mg/dL (70-99) Calcium Level 8.5 mg/dL (8.5-10.1) Test 04/28/21 08:04 04/28/21 12:08 Glucose (Fingerstick) 98 mg/dL (70-99) 78 mg/dL (70-99) Medications Current Medications Iodixanol (Visipaque 320) 100 ml STK-MED ONCE .ROUTE ; Start 04/26/21 at 10:26; Stop 04/26/21 at 10:26; Status DC Lidocaine HCl (Xylocaine-Mpf 1% 2ml Vial) 2 ml STK-MED ONCE .ROUTE ; Start 04/26/21 at 10:26; Stop 04/26/21 at 10:26; Status DC Heparin Sodium/ Sodium Chloride 1,500 ml @ As Directed STK-MED ONCE .ROUTE ; Start 04/26/21 at 10:26; Stop 04/26/21 at 10:26; Status DC Fentanyl Citrate (Fentanyl 2ml Vial) 100 mcg STK-MED ONCE .ROUTE ; Start 04/26/21 at 10:41; Stop 04/26/21 at 10:42; Status DC Midazolam HCl (Versed) 2 mg STK-MED ONCE .ROUTE ; Start 04/26/21 at 10:41; Stop 04/26/21 at 10:42; Status DC Heparin Sodium (Porcine) (Heparin Sodium) 10,000 unit STK-MED ONCE .ROUTE ; Start 04/26/21 at 10:42; Stop 04/26/21 at 10:42; Status DC Verapamil HCl (Verapamil) 5 mg STK-MED ONCE .ROUTE ; Start 04/26/21 at 10:42; Stop 04/26/21 at 10:42; Status DC Nitroglycerin (Nitroglycerin) 200 mcg STK-MED ONCE .ROUTE ; Start 04/26/21 at 10:42; Stop 04/26/21 at 10:42; Status DC Nitroglycerin (Nitroglycerin) 200 mcg 1X ONCE IART Last administered on 04/26/21at 10:58; Start 04/26/21 at 11:00; Stop 04/26/21 at 11:07; Status DC Verapamil HCl (Verapamil) 2.5 mg 1X ONCE IART Last administered on 04/26/21at 10:58; Start 04/26/21 at 11:00; Stop 04/26/21 at 11:07; Status DC Heparin Sodium (Porcine) (Heparin Sodium) 2,500 unit 1X ONCE IART Last administered on 04/26/21at 10:57; Start 04/26/21 at 11:00; Stop 04/26/21 at 11:07; Status DC Heparin Sodium/ Sodium Chloride (HEPARIN for ARTERIAL LINE FLUSH) 1,000 unit 1X ONCE IART Last administered on 04/26/21at 11:00; Start 04/26/21 at 11:00; Stop 04/26/21 at 11:07; Status DC Heparin Sodium/ Sodium Chloride (HEPARIN for ARTERIAL LINE FLUSH) 1,000 unit 1X ONCE IART Last administered on 04/26/21at 11:00; Start 04/26/21 at 11:00; Stop 04/26/21 at 11:07; Status DC Midazolam HCl (Versed) 2 mg 1X ONCE IV Last administered on 04/26/21at 10:57; Start 04/26/21 at 11:00; Stop 04/26/21 at 11:07; Status DC Fentanyl Citrate (Fentanyl 2ml Vial) 100 mcg 1X ONCE IV Last administered on 04/26/21at 10:57; Start 04/26/21 at 11:00; Stop 04/26/21 at 11:07; Status DC Iodixanol (Visipaque 320) 100 ml 1X ONCE IART Last administered on 04/26/21at 11:19; Start 04/26/21 at 11:00; Stop 04/26/21 at 11:07; Status DC Lidocaine HCl (Xylocaine-Mpf 1% 2ml Vial) 2 ml 1X ONCE INJ Last administered on 04/26/21at 10:57; Start 04/26/21 at 11:00; Stop 04/26/21 at 11:07; Status DC Info (CONTRAST GIVEN -- Rx MONITORING) 1 each PRN DAILY PRN MC SEE COMMENTS; Start 04/26/21 at 11:15; Stop 04/28/21 at 11:14; Status DC Nitroglycerin (Nitroglycerin) 200 mcg STK-MED ONCE .ROUTE ; Start 04/26/21 at 11:07; Stop 04/26/21 at 11:07; Status DC Sodium Chloride (Normal Saline Flush) 3 ml QSHIFT PRN IV AFTER MEDS AND BLOOD DRAWS; Start 04/26/21 at 13:15 Aspirin (Ecotrin) 81 mg DAILYWBKFT PO Last administered on 04/28/21at 10:14; Start 04/27/21 at 08:00 Clopidogrel Bisulfate (Plavix) 75 mg DAILYWBKFT PO Last administered on 04/28/21at 10:11; Start 04/27/21 at 08:00 Metoprolol Tartrate (Lopressor) 25 mg BID PO Last administered on 04/28/21at 10:10; Start 04/26/21 at 14:00 Atorvastatin Calcium (Lipitor) 40 mg QHS PO Last administered on 04/27/21at 19:57; Start 04/26/21 at 21:00 Nitroglycerin (Nitrostat) 0.4 mg PRN Q5MIN PRN SL CHEST PAIN; Start 04/26/21 at 13:15 Heparin Sodium/ Dextrose 250 ml @ 0 mls/hr CONT PRN IV PER PROTOCOL; Start 04/26/21 at 16:30 Heparin Sodium (Porcine) (Heparin Sodium) 1,650 unit PRN Q6HRS PRN IV FOR UFH LEVEL LESS THAN 0.2; Start 04/26/21 at 16:30 Labetalol HCl (Normodyne Iv Push) 20 mg Q6HRS PRN IVP HYPERTENSION Last administered on 04/28/21at 11:11; Start 04/26/21 at 16:30 Nitroglycerin/ Dextrose 250 ml @ 1.5 mls/hr CONT PRN IV SEE I/O RECORD Last administered on 04/27/21at 08:40; Start 04/26/21 at 16:45; Stop 04/27/21 at 1 4:29; Status DC Atorvastatin Calcium (Lipitor) 40 mg QHS PO ; Start 04/26/21 at 21:00; Status UNV Aspirin (Aspirin Chewable) 81 mg DAILY PO ; Start 04/27/21 at 09:00; Status UNV Lisinopril (Prinivil) 10 mg DAILY PO Last administered on 04/28/21at 10:11; Start 04/27/21 at 09:00 Insulin Glargine (Lantus Syringe) 24 unit BID SQ ; Start 04/26/21 at 21:00 Acetaminophen (Tylenol) 1,000 mg PRN Q6HRS PRN PO FEVER/mild pain Last administered on 04/26/21at 22:01; Start 04/26/21 at 21:45 Ondansetron HCl (Zofran) 4 mg PRN Q6HRS PRN IVP NAUSEA/VOMITING Last administered on 04/27/21at 10:30; Start 04/27/21 at 10:15 Lisinopril (Prinivil) 20 mg 1X ONCE PO Last administered on 04/27/21at 14:41; Start 04/27/21 at 14:30; Stop 04/27/21 at 14:31; Status DC Active Scripts Active Reported Aspirin 81 Mg Tab.chew 81 Mg PO DAILY Lisinopril 10 Mg Tablet 10 Mg PO DAILY Tresiba Flextouch U-100 (Insulin Degludec) 100 Unit/1 Ml Insuln.pen 24 Unit SQ BIDWMEALS Vitals/I & O Vital Sign - Last 24 Hours 04/27/21 04/27/21 04/27/21 04/27/21 14:41 15:00 19:20 19:57 Temp 98.6 98.2 98.6 98.2 Pulse 85 82 95 95 Resp 18 21 B/P (MAP) 172/82 181/82 (115) 187/83 (117) 187/83 Pulse Ox 96 95 O2 Delivery Room Air Room Air 04/27/21 04/27/21 04/28/21 04/28/21 19:59 23:15 03:30 07:40 Temp 98.8 98.1 98.8 98.1 Pulse 81 77 Resp 21 20 B/P (MAP) 141/67 (91) 158/67 (97) Pulse Ox 97 95 O2 Delivery Room Air Nasal Cannula Room Air Room Air O2 Flow Rate 1.0 04/28/21 04/28/21 04/28/21 04/28/21 07:45 10:10 10:11 11:00 Temp 98.0 98.1 98.0 98.1 Pulse 70 70 70 83 Resp 20 18 B/P (MAP) 165/78 (107) 165/78 165/78 197/90 (125) Pulse Ox 94 93 O2 Delivery Room Air Room Air 04/28/21 11:11 Pulse 81 B/P (MAP) 197/90 Intake and Output 04/27/21 04/27/21 04/28/21 15:00 23:00 07:00 Intake Total 120 ml 660 ml 300 ml Output Total 0 ml Balance 120 ml 660 ml 300 ml Justifications for Admission Other Justification HARPER OROURKE MD Apr 28, 2021 13:33
[2021-04-28 15:00] VITALS: BP 207/94
[2021-04-28] MEDS: ACETAMINOPHEN 500 MG TABLET PO PRN (15:13)
[2021-04-28] MEDS: METOPROLOL TART IMMED RELEASE 50 MG TABLET. PO SCH (17:57)
[2021-04-28 19:00] VITALS: BP_SYST 197; BP_SYST 201; BP_DIAS 89; BP_DIAS 95
[2021-04-28] MEDS ORDERED: LISINOPRIL 20 MG TABLET PO ONE (20:00)
[2021-04-28] MEDS: ATORVASTATIN CALCIUM 40 MG TABLET. PO SCH (20:08)
[2021-04-28 23:29] VITALS: BP 184/80
[2021-04-29 03:17] VITALS: BP 139/68
[2021-04-29 07:00] VITALS: BP 166/79
[2021-04-29 08:25] LABS: CALCIUM 8.7 mg/dL (8.5-10.1); CREATININE 1.7 mg/dL (0.6-1.0); GFR 32.4; POTASSIUM 4.9 mmol/L (3.5-5.1)
[2021-04-29] MEDS: INSULIN GLARGINE SYRINGE. SQ SCH (08:38)
[2021-04-29] MEDS: CLOPIDOGREL BISULFATE 75 MG TABLET PO SCH (08:46)
[2021-04-29] MEDS: ASPIRIN ENTERIC COATED 81 MG TABLET.DR. PO SCH (08:46)
[2021-04-29] MEDS: METOPROLOL TART IMMED RELEASE 50 MG TABLET. PO SCH (08:47)
[2021-04-29] MEDS: LISINOPRIL 10 MG TABLET PO SCH ×2 (08:47→09:00)
[2021-04-29] MEDS ORDERED: LISINOPRIL 10 MG TABLET PO SCH (09:00)
--- NOTE | 2021-04-29 09:30 | PN ---
DATE: 04/29/2021 SUBJECTIVE: The patient is sitting in her chair comfortably, in no apparent distress. On questioning her, denied any complaint. In particular, denied any chest pain, shortness of breath, orthopnea, paroxysmal nocturnal dyspnea. The nursing staff stated that she continued to have low blood sugar and her Lantus was held, probably because of her impaired kidney function due to contrast-induced nephropathy. PHYSICAL EXAMINATION: GENERAL: When I saw her this morning, she was pale, not jaundiced, cyanosed, no thyromegaly. No jugular venous distention. No limb edema. VITAL SIGNS: Her heart rate was 78, blood pressure was 166/79, temperature 97.6, respiratory rate was 18 and oxygen saturation was 98% on room air. HEAD, EYES, EARS, NOSE, AND THROAT: Normocephalic, atraumatic. NECK: Supple. HEART: Normal first heart sound, no gallop or murmur. CHEST: Clear to auscultation. No crepitation or rhonchi. ABDOMEN: Distended, soft, nontender. NEUROLOGIC: She is grossly intact. LABORATORY DATA: Her lab work as of yesterday showed a white cell count of 6800, hemoglobin 9, hematocrit 29, MCV 85 and platelet count 453,000. Her chemistry showed a serum sodium 141, potassium 4.9, chloride 107, bicarbonate 27, anion gap of 7, BUN 26, creatinine 1.7. Estimated GFR was 32 mL per minute. Her glucose was 63, calcium was 8.7, magnesium was 1.9. The patient is currently off the heparin and nitroglycerin drip. ASSESSMENT: 1. This is a 45-year-old [place] female patient who was admitted with non-ST segment elevation myocardial infarction. Her angiogram showed that she has severe 1 vessel disease involving the left anterior descending artery that is not amenable to percutaneous coronary intervention or bypass surgery. 2. Acute on chronic diastolic congestive heart failure. 3. Moderate left ventricular systolic dysfunction, ejection fraction of 40%. 4. Hypertension. 5. Hyperlipidemia. 6. Type 2 diabetes mellitus. 7. Acute on chronic kidney injury, likely due to contrast-induced nephropathy. Her creatinine has risen from 1.4 to 1.8 and today is down to 1.7. PLAN: To continue current treatment and if decision was made to discharge her, I informed the nursing staff to call me and I will discharge her from [facility]. RIRI/JERRICA DR: Lucille TID: [id number]
[2021-04-29 11:00] VITALS: BP 157/75
--- NOTE | 2021-04-29 13:21 | PDOC ---
CARDIOLOGY PROGRESS NOTE SUBJECTIVE: No acute events overnight. Patient denies any current chest pain. She is ambulating well. Her creatinine has been elevated and therefore she did not receive her lisinopril this morning. OBJECTIVE: Vital Signs/I&O: Vital Signs Date Time Temp Pulse Resp B/P (MAP) Pulse Ox O2 Delivery O2 Flow Rate FiO2 04/29/21 11:00 98.2 68 18 157/75 (102) 95 Room Air 98.2 I & O 04/28/21 04/28/21 04/29/21 15:00 23:00 07:00 Intake Total 680 ml 280 ml 80 ml Output Total 800 ml Balance 680 ml 280 ml -720 ml Objective: The patient appeared well nourished and normally developed. Head exam is unremarkable. No scleral icterus or corneal arcus noted. Neck is without jugular venous distension, thyromegaly, or carotid bruits. Carotid upstrokes are brisk bilaterally. Lungs are clear to auscultation and percussion. Cardiac exam reveals the PMI to be normally sized and situated. Rhythm is regular. First and second heart sounds normal. No murmurs, rubs or gallops. Abdominal exam reveals normal bowel sounds, no masses, no organomegaly and no aortic enlargement. Extremities are nonedematous and both femoral and pedal pulses are normal. Msk: No traumua Neuro: No focal deficits CURRENT MEDICATIONS: Current Medications Medications (Trade) Dose Ordered Sig/Fernando Route PRN Reason Start Time Stop Time Status Last Admin Dose Admin Amlodipine Besylate (Norvasc) 5 mg DAILY PO 04/28/21 14:00 04/29/21 08:47 Metoprolol Tartrate (Lopressor) 50 mg BID PO 04/28/21 18:00 04/29/21 08:47 Lisinopril (Prinivil) 40 mg 1X ONCE PO 04/28/21 20:00 04/28/21 20:01 DC 04/28/21 20:08 DIAGNOSTIC TESTING: No new diagnostic testing Labs: Laboratory Tests 04/29/21 07:55 Laboratory Tests Test 04/28/21 16:53 04/28/21 20:06 04/29/21 07:55 04/29/21 08:01 Glucose (Fingerstick) 113 mg/dL (70-99) H 108 mg/dL (70-99) H 59 mg/dL (70-99) L Sodium Level 141 mmol/L (136-145) Potassium Level 4.9 mmol/L (3.5-5.1) Chloride Level 107 mmol/L (98-107) Carbon Dioxide Level 27 mmol/L (21-32) Anion Gap 7 (6-14) Blood Urea Nitrogen 26 mg/dL (7-20) H Creatinine 1.7 mg/dL (0.6-1.0) H Estimated GFR (Cockcroft-Gault) 32.4 Glucose Level 63 mg/dL (70-99) L Calcium Level 8.7 mg/dL (8.5-10.1) Test 04/29/21 08:46 04/29/21 11:33 Glucose (Fingerstick) 103 mg/dL (70-99) H 74 mg/dL (70-99) ASSESSMENT: 1. Non-ST elevation MD 2. Ischemic cardiomyopathy with ejection fraction of 35% 3. Chronic kidney disease 4. Type 2 diabetes PLAN: 1. Recommendations for discharge on the following medications from a cardiovascular perspective: -Aspirin 81 mg daily -Plavix 75 mg daily -Atorvastatin 40 mg daily -Imdur 30 mg -Metoprolol 50 mg p.o. twice daily -Amlodipine 10 mg daily On an outpatient basis she should be referred to nephrology service and consider initiation of KEILY inhibitor therapy with close monitoring of her renal function for long-term renal protective effects. Supportive care for now. Discussed with the patient and her family. Justicifation of Admission Dx: Justifications for Admission: Justification of Admission Dx: N/A VALE GONZALEZ MD Apr 29, 2021 13:21
--- NOTE | 2021-04-29 13:45 | NUR ---
SS following for discharge planning. SS reviewed pt chart and discussed with pt RN. Pt is from home and is currently on room air. Pt had heart cath on 04/26/2021. No PT/OT needs. Cardiology signed off. Anticipate discharge to home today. SS will continue to follow for discharge planning.
[2021-04-29] MEDS ORDERED: ATOR40TA59 PO (14:11)
[2021-04-29] MEDS ORDERED: METO50TA6 PO (14:11)
[2021-04-29] MEDS ORDERED: HYDR-2868 PO (14:14)
[2021-04-29] MEDS ORDERED: ISOS10TA4 PO (14:14)
[2021-04-29] MEDS ORDERED: CLOP75TA PO (14:15)
[2021-04-29] MEDS ORDERED: AMLO-187 PO (14:15)
[2021-04-29 15:00] VITALS: BP 175/77
--- NOTE | 2021-04-29 17:58 | NUR ---
Discharge Note: ZANDRA LARA[address] [place] [address] Discharge instructions and discharge home medications reviewed with Patient and a copy given. All questions have been answered and understanding verbalized.
== END 2021-04-29 16:40 | disposition home or self-care (01) | DRG 280 ==
LOC: CCL 10:15 → 6 SOUTH 13:17
PROVIDERS: ADMIT Internal Medicine; ATTEND Internal Medicine
PROC: 4A023N7 Measurement of Cardiac Sampling and Pressure, Left Heart, Percutaneous Approach (ICD-10-PCS; principal; 2021-04-26)
PROC: B211YZZ Fluoroscopy of Multiple Coronary Arteries using Other Contrast (ICD-10-PCS; 2021-04-26)
PROC: B215YZZ Fluoroscopy of Left Heart using Other Contrast (ICD-10-PCS; 2021-04-26)
DX: I21.4 Non-ST elevation (NSTEMI) myocardial infarction (principal); J96.01 Acute respiratory failure with hypoxia; I50.43 Acute on chronic combined systolic (congestive) and diastolic (congestive) heart failure; I13.0 Hypertensive heart and chronic kidney disease with heart failure and stage 1 through stage 4 chronic kidney disease, or unspecified chronic kidney disease; N17.9 Acute kidney failure, unspecified; E78.00 Pure hypercholesterolemia, unspecified; E78.5 Hyperlipidemia, unspecified; D64.9 Anemia, unspecified; I25.10 Atherosclerotic heart disease of native coronary artery without angina pectoris; N18.9 Chronic kidney disease, unspecified; N14.1 Nephropathy induced by other drugs, medicaments and biological substances; E11.22 Type 2 diabetes mellitus with diabetic chronic kidney disease; I25.5 Ischemic cardiomyopathy; T50.8X5A Adverse effect of diagnostic agents, initial encounter; Y92.89 Other specified places as the place of occurrence of the external cause; Z88.8 Allergy status to other drugs, medicaments and biological substances; Z82.49 Family history of ischemic heart disease and other diseases of the circulatory system
CPT/HCPCS: 36415; 80048; 82962; 83735; 85025; 85027; 85347; 85520; 93005; 93306; 93458; 99152; 99153; C1894; J1644; J2250; J2405; J3010; J3490; Q9967; G0378

== ENCOUNTER → 2021-12-27 | Outpatient (CLI) | payer OTHER ==
[2021-09-30 15:49] VITALS: BP 112/52
[~2021-12-27] MED LIST: AMLO-187 PO; ASPI-630 PO; ATOR40TA59 PO; CLOP75TA PO; HYDR-2868 PO; INSU100I30 SQ; ISOS10TA4 PO; LISI10TA16 PO; METO50TA6 PO
--- NOTE | 2021-12-29 16:18 | CARD ---
MR#: [id number] Date of Study: 12/27/2021 Ordering Physician: VALE GONZALEZ, Referring Physician: VALE GONZALEZ, Tech: Pallavi Patrick [facility] APPROVED REPORT EXAM: Two-dimensional and M-mode echocardiogram with Doppler and color Doppler. Other Information Quality : AverageHR: 80bpm Rhythm : NSR INDICATION Cardiac Disease: CAD RISK FACTORS Hypertension Hyperlipidemia Diabetes 2D DIMENSIONS Left Atrium(2D)3.3 (1.6-4.0cm)IVSd1.4 (0.7-1.1cm) Aortic Root(2D)3.0 (2.0-3.7cm)LVDd4.1 (3.9-5.9cm) LVOT Diameter2.1 (1.8-2.4cm)PWd1.5 (0.7-1.1cm) LVDs2.2 (2.5-4.0cm)FS (%) 46.5 % SV58.5 mlLVEF(%)78.3 (>50%) Aortic Valve AoV Peak Torres.129.6cm/sAoV VTI32.4cm AO Peak GR.6.7mmHgLVOT Peak Torres.99.6cm/s AO Mean GR.4mmHgAVA (VMAX)2.69cm2 Mitral Valve MV E Tryjhzfd37.9cm/sMV DECEL TAXE887ge MV A Yvtarlmq64.0cm/sE/A Ratio0.8 LEFT VENTRICLE The left ventricle is normal size. There is mild concentric left ventricular hypertrophy. The left ve ntricular systolic function is normal and the ejection fraction is within normal range. Estimated eje ction fraction 60%. There is normal LV segmental wall motion. Transmitral Doppler flow pattern is Gra de I-abnormal relaxation pattern. RIGHT VENTRICLE The right ventricle is normal size. There is normal right ventricular wall thickness. The right ventr icular systolic function is normal. ATRIA The left atrium size is normal. The right atrium size is normal. The interatrial septum is intact wit h no evidence for an atrial septal defect or patent foramen ovale as noted on 2-D or Doppler imaging. AORTIC VALVE The aortic valve is normal in structure and function. Doppler and Color Flow revealed mild aortic reg urgitation. There is no significant aortic valvular stenosis. MITRAL VALVE The mitral valve is normal in structure and function. There is no evidence of mitral valve prolapse. There is no mitral valve stenosis. Doppler and Color-flow revealed trace mitral regurgitation. TRICUSPID VALVE The tricuspid valve is normal in structure and function. Doppler and Color Flow revealed no tricuspid valve regurgitation noted. There is no tricuspid valve stenosis. PULMONIC VALVE Doppler and Color Flow revealed no pulmonic valvular regurgitation. There is no pulmonic valvular raúl nosis. GREAT VESSELS The aortic root is normal in size. The ascending aorta is normal in size. The IVC is normal in size a nd collapses >50% with inspiration. PERICARDIAL EFFUSION There is no evidence of significant pericardial effusion. Critical Notification Critical Value: No <Conclusion> The left ventricular systolic function is normal and the ejection fraction is within normal range. E stimated ejection fraction 60%. There is normal LV segmental wall motion. Doppler and Color Flow revealed mild aortic regurgitation. Signed by : Vale Gonzalez, Electronically Approved : 12/29/2021 16:17:46
== END ==
LOC: ECHO 14:47
PROVIDERS: ATTEND Internal Medicine Cardiovascular Disease
DX: I35.1 Nonrheumatic aortic (valve) insufficiency (principal); I51.7 Cardiomegaly; I10 Essential (primary) hypertension
CPT/HCPCS: 93306; C8929